=== PATIENT | female | born 1965 | race Caucasian/White ===

== ENCOUNTER → 2019-03-04 12:02 | Outpatient (CLI) | payer OTHER, SELFPAY ==
--- NOTE | 2019-03-04 12:39 | DI.CT.S_ITS ---
PROCEDURE: CT ABDOMEN PELVIS W CON INDICATIONS: Periumbilical pain TECHNIQUE: After the administration of oral and intravenous contrast, 5 mm thick sections acquired from the diaphragms to the symphysis. 5 mm thick coronal and sagittal reformats were performed. For radiation dose reduction, the following was used: automated exposure control, adjustment of mA and/or kV according to patient size. COMPARISON: [facility], CT, ABDOMEN/PELVIS WITH CONTRAST, 04/22/2017, 15:09. FINDINGS: Image quality: Excellent. ABDOMEN: Lung bases: Lung bases are clear. Heart size is normal. Solid organs: Liver is normal in size and enhancement. Gallbladder contains 2 small gallstones, densely calcified. There is no evidence for associated acute cholecystitis or biliary obstruction. Biliary system is non-dilated. Pancreas enhances normally. Spleen is normal in size and enhancement. No adrenal nodules. Kidneys are normal in size and enhancement, without hydronephrosis. Peritoneum and bowel: Stomach, small bowel, and colon loops are normal in caliber and wall thickness. No free fluid or air. Nodes and vessels: No retroperitoneal or mesenteric adenopathy. Aorta and inferior vena cava are normal in caliber. Miscellaneous: No ventral hernias. PELVIS: Genitourinary: Bladder wall thickness is normal. Note is made of lobulation of the uterine myometrium, consistent with multiple small and moderate sized uterine fibroids. Miscellaneous: No inguinal hernias or adenopathy. At the left lower quadrant area of diverticulitis identified on CT scanning 04/22/17 now appears normal. A normal appendix is identified at the right lower quadrant. There is no inflammatory process identified through the pelvis. Bones: No suspicious bony lesions. No vertebral body compression fractures. IMPRESSION: 1. Normal appendix found. 2. No evidence of diverticulitis. Mild diverticulosis at the sigmoid colon again noted. 3. Through the abdomen and pelvis no underlying infection or malignant neoplasm is suspected. Incidental note is made of at least 2 calcified small gallstones within the gallbladder lumen without evidence of acute cholecystitis or biliary obstruction. 4. Incidental note made of mild lobulation and heterogeneity of the myometrium consistent with presence of multiple scattered small and medium sized fibroids. If clinically desired this area could be more accurately assessed with dedicated pelvic ultrasound. No inflammatory process involving the adnexal structures appears present. Dictated by: Emil Webb M.D. on 03/04/2019 at 16:30 Approved by: Emil Webb M.D. on 03/04/2019 at 16:35
== END ==
PROVIDERS: PCP Family Medicine; Visit Provider Family Medicine
DX: R10.33 Periumbilical pain (principal); K57.30 Diverticulosis of large intestine without perforation or abscess without bleeding; K80.20 Calculus of gallbladder without cholecystitis without obstruction
CPT/HCPCS: 74177; Q9967

== ENCOUNTER 2019-07-04 14:10 | Emergency (ER) | payer OTHER, SELFPAY ==
[2019-07-04] VITALS (9 sets, daily range): BP systolic 100–121; BP diastolic 59–76; PULSE 61–84; RESP 12–22; TEMP 37.1; O2SAT 96–100; BMI 22.7
--- NOTE | 2019-07-04 14:32 | ED.ABDPAIN ---
HPI - Abdominal Pain <Levi MAKI Hooper - Last Filed: 07/04/19 22:13> General Chief Complaint: Abdominal Pain Stated Complaint: GALLBLADDER ISSUE Time Seen by Provider: 07/04/19 14:18 Source: patient and family Mode of arrival: Ambulatory Limitations: no limitations History of Present Illness HPI narrative: This is a 54-year-old female, nonsmoker, who has history of diverticulitis and hypothyroidism, presents to ED with significant other with chief complain of intermittent severe epigastric pain, right flank pain, and nausea. Patient reports onset of epigastric and back pain started last week Thursday (T-6) with multiple episodes of vomiting but subsided next day. Following 3 days she felt fatigue and weak and spends her days sleeping. Patient had recurring severe pain right above umbilicus radiating to upper chest and back with nausea. Patient states she feels hot/chills only when she has pain. Patient also worsening right flank pain since yesterday. Patient denies urinary frequency, urgency, dysuria. Patient reports pain feels as cramping and rates from 2/10 (now) to 10/10 (last night). Patient has decreased appetite and has been taking liquid diet with diluted non caffeinated tea and smoothies for diverticulitis diet. She was treated with Flagyl and Cipro when she had diverticulitis episode in January. Patient denies recent blood in her stools. Last bowel movement was 2 days ago. Patient states she occasionally drinks but has not been taken excessive alcohol drink with diverticulitis history and recent malaise. CT Abdomen/Pelvis (02/2019) indicates 2 small gallstones densely calcified without acute cholecystitis or biliary obstruction. Biliary system was nondilated. No evidence of diverticulitis but mild diverticulosis at the sigmoid colon was appreciated. There was incidental note of mild lobulation and heterogeneity of the myometrium which is consistent with fibroids without inflammatory process. Related Data Previous Rx's Medication Instructions Recorded levothyroxine [Synthroid] 25 mcg PO QAM #90 tab 01/30/16 medroxyprogesterone 2.5 mg PO QDAY #90 tab 01/30/16 estradiol [Climara] 1 patch TOPICAL QWEEK #12 patch 10/07/16 Allergies Allergy/AdvReac Type Severity Reaction Status Date / Time aspirin [ASPIRIN] Allergy Unknown childhood Verified 07/04/19 16:03 Review of Systems <MAKI Rivers - Last Filed: 07/04/19 22:13> Review of Systems Narrative: General: See HPI HEENT: Denies sinus pain, ear pain, sore throat, difficulty swallowing, dizziness. Respiratory: Denies dyspnea, cough, wheezing, hemoptysis, sputum. Cardiovascular: Denies chest pain, palpitations, orthopnea, edema. Gastrointestinal: See HPI : Denies dysuria, frequency, incontinence, hematuria, urinary retention. Musculoskeletal: Denies weakness, joint pain or bony pain, (+) right flank pain. Skin: Denies rash, skin lesions, or other. Neurologic: Denies weakness, headache, numbness, change in speech, confusion, seizures, incoordination. Psychiatric: No concerning psychosocial issues. 12-point review of systems is negative except for those stated above. Patient History <MAKI Rivers - Last Filed: 07/04/19 22:13> Medical History Fibroids (Acute) Surgical History History of third molar tooth extraction Family History Brother Age: 65 Hepatitis C Brother Age: 74 Gout Father Hypertension High cholesterol Stroke Grandfather Stroke Mother Age: 96 Pacemaker Diabetes mellitus Heart disease Hypertension High cholesterol Sister Age: 62 Graves disease Sister Age: 69 Colitis Fibromyalgia Social History Smoking Status: Never smoker Smoking Status: Never smoker alcohol intake frequency: a few times a week Alcohol type: wine Substance Use Type: does not use Exam <MAKI Rivers - Last Filed: 07/04/19 22:13> Narrative Exam Narrative: GEN: Alert, oriented x 3, well appearing and nourished, and in no acute distress. Head: Normal cephalic, atraumatic. No scalp or temporal tenderness, palpable mass or rash. EYES: Pupils are equal, round, and reactive to light and accommodation. Extraocular muscles are intact bilaterally. There is no subconjunctival hemorrhage, exudate and sclera non-icteric. ENT: Hearing grossly intact. Nose without bleeding, purulent discharge or deviation. Facial sinuses nontender to palpate. Mucous membrane moist, no mucosal lesion. Throat without erythema, tonsillar hypertrophy or exudate. Uvula in midline, airway patent. Neck: Trachea in midline. No JVD, non-tender without lymphadenopathy. No masses or thyroid megaly. Supple, non-tender and no meningeal signs. CARDIAC: Normal regular rate and rhythm without murmurs, gallops, or rubs. No chest wall tenderness. No peripheral edema, cyanosis or pallor. Capillary refill is less than 2 seconds. RESPIRATORY: Lungs are clear to auscultate bilaterally. No cough, wheezes, rales, or rhonchi. No stridor, respiratory distress, increase work of breathing, or accessary muscle used. ABD: Abdomen soft, nondistended and tender to palpate in all quadrant. No guarding, rebound tenderness to epigastric region. Bowel sounds are normal in all 4 quadrants. There is no palpable masses or organomegaly. EXT: Full painless ROM of all extremities with no loss of sensation, strength, effusion or edema. SKIN: Warm, dry, normal color for patient. No erythema, lesions or rash over visible areas. BACK: Nontender without deformity or crepitance. Right flank tenderness to palpate. NEUROLOGICAL: Alert and oriented to place, time and person. Sensation and motor function intact bilaterally. No facial droops, dysphasia. PSYCHIATRIC: Good judgement and reason, without hallucinations, abnormal affect or abnormal behaviors during the examination. Initial Vital Signs Initial Vital Signs: Vital Signs Temperature 98.7 F 07/04/19 14:20 Pulse Rate 84 07/04/19 14:20 Respiratory Rate 22 07/04/19 14:20 Blood Pressure 121/76 07/04/19 14:20 Pulse Oximetry 99 07/04/19 14:20 <Young Mcgraw DO - Last Filed: 07/05/19 07:02> Initial Vital Signs Initial Vital Signs: Vital Signs Temperature 98.7 F 07/04/19 14:20 Pulse Rate 84 07/04/19 14:20 Respiratory Rate 22 07/04/19 14:20 Blood Pressure 121/76 07/04/19 14:20 Pulse Oximetry 99 07/04/19 14:20 Scores <MAKI Rivers - Last Filed: 07/04/19 22:13> GCS [place] coma scale eye opening: Spontaneous [place] coma scale verbal response: Orientated [place] coma scale motor response: Obey commands [place] coma scale total score: 15 Course <Levi JadielMAKI juan - Last Filed: 07/04/19 22:13> Orders Ordered: Discontinued Medications Sodium Chloride (Normal Saline 0.9%) 1,000 mls @ 150 mls/hr IV CONT HARRY Last Infusion: 07/04/19 18:52 Dose: 0 mls/hr Documented by: Admin: 07/04/19 14:51 Dose: 150 mls/hr Documented by: TESS Ondansetron HCl (Zofran) 4 mg IV NOW ONE Stop: 07/04/19 18:56 Last Admin: 07/04/19 18:58 Dose: 4 mg Documented by: TESS Vital Signs Vital signs: Vital Signs - 8 hr 07/04/19 14:20 07/04/19 14:46 07/04/19 15:00 Temperature 98.7 F Pulse Rate 84 66 71 Respiratory Rate 22 12 16 Blood Pressure 121/76 Blood Pressure [Left Arm] 113/76 116/69 Pulse Oximetry 99 96 98 07/04/19 15:40 07/04/19 16:00 07/04/19 16:30 Temperature Pulse Rate 66 61 62 Respiratory Rate 17 16 Blood Pressure Blood Pressure [Left Arm] 105/69 100/65 109/59 L Pulse Oximetry 99 97 07/04/19 17:00 07/04/19 18:37 07/04/19 19:03 Temperature Pulse Rate 68 66 66 Respiratory Rate 16 12 14 Blood Pressure 106/72 Blood Pressure [Left Arm] 106/68 106/72 Pulse Oximetry 98 100 100 <Young Mcgraw DO - Last Filed: 07/05/19 07:02> Orders Ordered: Discontinued Medications Sodium Chloride (Normal Saline 0.9%) 1,000 mls @ 150 mls/hr IV CONT HARRY Last Infusion: 07/04/19 18:52 Dose: 0 mls/hr Documented by: Admin: 07/04/19 14:51 Dose: 150 mls/hr Documented by: TESS Ondansetron HCl (Zofran) 4 mg IV NOW ONE Stop: 07/04/19 18:56 Last Admin: 07/04/19 18:58 Dose: 4 mg Documented by: TESS Vital Signs Vital signs: Vital Signs - 8 hr 07/04/19 14:20 07/04/19 14:46 07/04/19 15:00 Temperature 98.7 F Pulse Rate 84 66 71 Respiratory Rate 22 12 16 Blood Pressure 121/76 Blood Pressure [Left Arm] 113/76 116/69 Pulse Oximetry 99 96 98 07/04/19 15:40 07/04/19 16:00 07/04/19 16:30 Temperature Pulse Rate 66 61 62 Respiratory Rate 17 16 Blood Pressure Blood Pressure [Left Arm] 105/69 100/65 109/59 L Pulse Oximetry 99 97 07/04/19 17:00 07/04/19 18:37 07/04/19 19:03 Temperature Pulse Rate 68 66 66 Respiratory Rate 16 12 14 Blood Pressure 106/72 Blood Pressure [Left Arm] 106/68 106/72 Pulse Oximetry 98 100 100 MDM - Abdominal Pain <MAKI Rivers - Last Filed: 07/04/19 22:13> Differential Diagnosis Differential diagnosis: Likely diverticulitis, pancreatitis and other (Cholecystitis, kidney infection, kidney stone, cholelithiasis) Medical Records Attestation: I reviewed the patient's medical records. Lab Data Attestation: I reviewed the patient's lab results. Result diagrams: 07/04/19 14:37 07/04/19 14:37 Labs: Lab Results 07/04/19 07/04/19 07/04/19 Range/Units 14:37 14:37 14:37 WBC 6.3 (4.5-11.0) X10^3/uL RBC 4.72 (4.0-5.2) X10^6/uL Hgb 15.1 (12.0-16.0) g/dL Hct 43.2 (36-46) % MCV 91.5 (80-100) fL MCH 32.1 (26-34) PG MCHC 35.0 (30-36) % RDW 12.9 (11.6-14.8) % Plt Count 206 (150-400) X10^3/uL Neut % (Auto) 72.5 (50-75) % Lymph % (Auto) 20.8 L (25-40) % Harvey % (Auto) 5.5 (3-14) % Eos % (Auto) 0.8 L (2-4) % Baso % (Auto) 0.4 (0-2) % Neut # (Auto) 4600 (3155-7386) /uL Lymph # (Auto) 1300 (8349-8330) /uL Harvey # (Auto) 300 (0-900) /uL Eos # (Auto) 100 (0-450) /uL Baso # (Auto) 0 (0-100) /uL PT 12.4 (10.1-12.7) SECONDS INR 1.1 (0.9-1.3) APTT 28 (26.4-36.2) SECONDS Sodium 139 (137-145) mmol/L Potassium 4.1 (3.4-5.1) mmol/L Chloride 103 (98-107) mmol/L Carbon Dioxide 27 (22-32) mmol/L BUN 8 (7-17) mg/dL Creatinine 0.72 (0.52-1.04) mg/dL Estimated GFR > 60.0 (>60) mL/min BUN/Creatinine Ratio 11.1 (6-22) Glucose 96 (70-100) mg/dL Lactate (0.7-2.1) mmol/L Calcium 9.8 (8.4-10.2) mg/dL Total Bilirubin 1.3 (0.2-1.3) mg/dL AST 699 H (14-36) IU/L ALT 581 H (<35) IU/L Alkaline Phosphatase 146 H (38-126) U/L Total Creatine Kinase 28 L (30-135) U/L CK-MB (CK-2) TNP CK-MB (CK-2) Rel Index TNP Troponin I < 0.012 (0.01-0.034) ng/mL Total Protein 8.0 (6.3-8.2) g/dL Albumin 4.6 (3.5-5.0) g/dL Globulin 3.4 (1.7-4.1) g/dL Albumin/Globulin Ratio 1.4 (1.0-2.8) Lipase 301 H (23-300) U/L Procalcitonin (<0.5) ng/mL 07/04/19 07/04/19 Range/Units 14:37 14:37 WBC (4.5-11.0) X10^3/uL RBC (4.0-5.2) X10^6/uL Hgb (12.0-16.0) g/dL Hct (36-46) % MCV (80-100) fL MCH (26-34) PG MCHC (30-36) % RDW (11.6-14.8) % Plt Count (150-400) X10^3/uL Neut % (Auto) (50-75) % Lymph % (Auto) (25-40) % Harvey % (Auto) (3-14) % Eos % (Auto) (2-4) % Baso % (Auto) (0-2) % Neut # (Auto) (7395-0347) /uL Lymph # (Auto) (7683-2368) /uL Harvey # (Auto) (0-900) /uL Eos # (Auto) (0-450) /uL Baso # (Auto) (0-100) /uL PT (10.1-12.7) SECONDS INR (0.9-1.3) APTT (26.4-36.2) SECONDS Sodium (137-145) mmol/L Potassium (3.4-5.1) mmol/L Chloride (98-107) mmol/L Carbon Dioxide (22-32) mmol/L BUN (7-17) mg/dL Creatinine (0.52-1.04) mg/dL Estimated GFR (>60) mL/min BUN/Creatinine Ratio (6-22) Glucose (70-100) mg/dL Lactate 0.8 (0.7-2.1) mmol/L Calcium (8.4-10.2) mg/dL Total Bilirubin (0.2-1.3) mg/dL AST (14-36) IU/L ALT (<35) IU/L Alkaline Phosphatase (38-126) U/L Total Creatine Kinase (30-135) U/L CK-MB (CK-2) CK-MB (CK-2) Rel Index Troponin I (0.01-0.034) ng/mL Total Protein (6.3-8.2) g/dL Albumin (3.5-5.0) g/dL Globulin (1.7-4.1) g/dL Albumin/Globulin Ratio (1.0-2.8) Lipase (23-300) U/L Procalcitonin < 0.05 (<0.5) ng/mL Imaging Data US - abdomen: Radiologist's Impression: [address] [address] Ultrasound Report Signed Patient: Nava Bhatti [facility]#: [id number] : 1965Acct:[id number] Age/Sex: 54 / FDate of Service: 07/04/19 Loc: ED Accession Number: [id number] Procedure: US abdomen limited Ordering Provider: Levi Hooper PROCEDURE: US ABDOMEN LIMITED INDICATIONS: ABDOMINAL PAIN,NAUSEA,ELEVATED LIVER ENZYMES TECHNIQUE: Real-time focused scanning was performed of the abdomen, with image documentation. COMPARISON: None. FINDINGS: The liver measures up to 14.2 cm in length, normal, with normal echotexture. The gallbladder contains a mobile 12 mm stone, and the gallbladder wall is normal in thickness at 2 mm. There is, however, relative dilatation of the common bile duct and common hepatic duct, measuring 10 mm and 9 mm respectively. IMPRESSION: Gallstone within the gallbladder lumen. Pancreas visualized appears normal. Abnormal biliary dilatation at the common hepatic duct and the common bile duct measuring up to 10 mm. There is a clinical concern for common duct calculus followup MR cholangiogram may be warranted. Pancreas visualized appears normal. Dictated by: Emil Webb M.D. on 07/04/2019 at 16:18 Approved by: Emil Webb M.D. on 07/04/2019 at 16:19 ECG Data Attestation: I personally reviewed and interpreted this ECG as follows: Prior ECG tracings: not available for review Interpretation: Sinus rhythm rate at 67. Normal [place]. OK interval 164, QRS duration 78, QT/QTC 422/445. No ST elevation or depression. MDM Narrative Medical decision making narrative: This is a 54-year-old female presents to ED with generalized abdominal pain worse in epigastric region with nausea and vomiting. There is no leukocytosis. White count was 6.3 without elevation in neutrophil. Test with elevated liver function test. AST of 699, ALT 581, Alk Phos 146, Lipase 301 (23-300), Total bili 1.3. Normal coag test. Cardiac enzymes were negative. Abdominal ultrasound test indicates mobile 12 mm stone in gallbladder with normal gallbladder wall thickening. There is relative dilation of common bile duct and common hepatic duct measuring [address] Perry (General Surgeon) and was recommended GI specialist evaluation for possible ERCP procedure and MRCP imaging test which is not capable for us to provide today. (1710) Dr. Robert (GI specialist) at [facility] was consulted and he kindly accepted patient's care for in anticipation of ERCP procedure. (1715) Dr. Enriquez (Hospitalist) at [place] kindly accepted patient's care for continuation of care. All required documents completed and pending transfer to [facility] discussed with patient and she verbalized understanding and agreement with treatment plan. Patient declined pain or anti nausea medications at this time since the severity is not bed. Patient currently waiting for transfer team to arrive with ETA at 7:00 p.m.. <Young Mcgraw DO - Last Filed: 07/05/19 07:02> Lab Data Labs: Lab Results 07/04/19 07/04/19 07/04/19 Range/Units 14:37 14:37 14:37 WBC 6.3 (4.5-11.0) X10^3/uL RBC 4.72 (4.0-5.2) X10^6/uL Hgb 15.1 (12.0-16.0) g/dL Hct 43.2 (36-46) % MCV 91.5 (80-100) fL MCH 32.1 (26-34) PG MCHC 35.0 (30-36) % RDW 12.9 (11.6-14.8) % Plt Count 206 (150-400) X10^3/uL Neut % (Auto) 72.5 (50-75) % Lymph % (Auto) 20.8 L (25-40) % Harvey % (Auto) 5.5 (3-14) % Eos % (Auto) 0.8 L (2-4) % Baso % (Auto) 0.4 (0-2) % Neut # (Auto) 4600 (4491-0770) /uL Lymph # (Auto) 1300 (6473-0839) /uL Harvey # (Auto) 300 (0-900) /uL Eos # (Auto) 100 (0-450) /uL Baso # (Auto) 0 (0-100) /uL PT 12.4 (10.1-12.7) SECONDS INR 1.1 (0.9-1.3) APTT 28 (26.4-36.2) SECONDS Sodium 139 (137-145) mmol/L Potassium 4.1 (3.4-5.1) mmol/L Chloride 103 (98-107) mmol/L Carbon Dioxide 27 (22-32) mmol/L BUN 8 (7-17) mg/dL Creatinine 0.72 (0.52-1.04) mg/dL Estimated GFR > 60.0 (>60) mL/min BUN/Creatinine Ratio 11.1 (6-22) Glucose 96 (70-100) mg/dL Lactate (0.7-2.1) mmol/L Calcium 9.8 (8.4-10.2) mg/dL Total Bilirubin 1.3 (0.2-1.3) mg/dL AST 699 H (14-36) IU/L ALT 581 H (<35) IU/L Alkaline Phosphatase 146 H (38-126) U/L Total Creatine Kinase 28 L (30-135) U/L CK-MB (CK-2) TNP CK-MB (CK-2) Rel Index TNP Troponin I < 0.012 (0.01-0.034) ng/mL Total Protein 8.0 (6.3-8.2) g/dL Albumin 4.6 (3.5-5.0) g/dL Globulin 3.4 (1.7-4.1) g/dL Albumin/Globulin Ratio 1.4 (1.0-2.8) Lipase 301 H (23-300) U/L Procalcitonin (<0.5) ng/mL 07/04/19 07/04/19 Range/Units 14:37 14:37 WBC (4.5-11.0) X10^3/uL RBC (4.0-5.2) X10^6/uL Hgb (12.0-16.0) g/dL Hct (36-46) % MCV (80-100) fL MCH (26-34) PG MCHC (30-36) % RDW (11.6-14.8) % Plt Count (150-400) X10^3/uL Neut % (Auto) (50-75) % Lymph % (Auto) (25-40) % Harvey % (Auto) (3-14) % Eos % (Auto) (2-4) % Baso % (Auto) (0-2) % Neut # (Auto) (7600-3580) /uL Lymph # (Auto) (0138-7246) /uL Harvey # (Auto) (0-900) /uL Eos # (Auto) (0-450) /uL Baso # (Auto) (0-100) /uL PT (10.1-12.7) SECONDS INR (0.9-1.3) APTT (26.4-36.2) SECONDS Sodium (137-145) mmol/L Potassium (3.4-5.1) mmol/L Chloride (98-107) mmol/L Carbon Dioxide (22-32) mmol/L BUN (7-17) mg/dL Creatinine (0.52-1.04) mg/dL Estimated GFR (>60) mL/min BUN/Creatinine Ratio (6-22) Glucose (70-100) mg/dL Lactate 0.8 (0.7-2.1) mmol/L Calcium (8.4-10.2) mg/dL Total Bilirubin (0.2-1.3) mg/dL AST (14-36) IU/L ALT (<35) IU/L Alkaline Phosphatase (38-126) U/L Total Creatine Kinase (30-135) U/L CK-MB (CK-2) CK-MB (CK-2) Rel Index Troponin I (0.01-0.034) ng/mL Total Protein (6.3-8.2) g/dL Albumin (3.5-5.0) g/dL Globulin (1.7-4.1) g/dL Albumin/Globulin Ratio (1.0-2.8) Lipase (23-300) U/L Procalcitonin < 0.05 (<0.5) ng/mL Discharge Plan Departure Patient Disposition: [facility] Clinical Impression: Gallstones with obstruction of gallbladder Qualifiers: Cholecystitis presence: without cholecystitis Qualified Code(s): K80.21 - Calculus of gallbladder without cholecystitis with obstruction Discharge Date/Time: 07/04/19 19:05 Prescriptions: No Action medroxyprogesterone 2.5 MG tablet 2.5 mg PO QDAY Qty: 90 RF: 3 levothyroxine [Synthroid] 25 MCG tablet 25 mcg PO QAM Qty: 90 RF: 3 estradiol [Climara] 0.025 MG/24 HR patch weekly 1 patch Topical QWEEK Qty: 12 RF: 3 Referrals: Lynsey Arrieta MD [Primary Care Provider] - <Young Mcgraw DO - Last Filed: 07/05/19 07:02> Cosign ED Attending Cosignature Attestation: Dr Mcgraw Co-Sign Statement: I was available for consultation during this patient's emergency department visit. This chart is signed by myself for administrative purposes only. I did not have direct contact with this patient during this visit. They were seen independently by the APC.
[2019-07-04 14:42] LABS: Add Manual Diff / Slide Review NO; Basophils Absolute Auto 0 /uL (0-100); Basophils Percent Auto 0.4 % (0-2); Eosinophils Absolute Auto 100 /uL (0-450); Eosinophils Percent Auto 0.8 % (2-4); Hematocrit 43.2 % (36-46); Hemoglobin 15.1 g/dL (12.0-16.0); Lymphocytes Absolute Auto 1300 /uL (1100-4500); Lymphocytes Percent Auto 20.8 % (25-40); Mean Corpuscular Hemoglobin 32.1 PG (26-34); Mean Corpuscular Volume 91.5 fL (80-100); Monocytes Absolute Auto 300 /uL (0-900); Monocytes Percent Auto 5.5 % (3-14); Neutrophils Absolute Auto 4600 /uL (1500-7000); Neutrophils Percent Auto 72.5 % (50-75); Platelet Count 206 X10^3/uL (150-400); Red Blood Cell Count 4.72 X10^6/uL (4.0-5.2); Red Cell Distribution Width 12.9 % (11.6-14.8); White Blood Cell Count 6.3 X10^3/uL (4.5-11.0)
[2019-07-04 14:49] LABS: INR 1.1 (0.9-1.3); Prothrombin Time 12.4 SECONDS (10.1-12.7)
[2019-07-04 14:51] LABS: PTT Partial Thromboplastin Tim 28 SECONDS (26.4-36.2)
[2019-07-04] MEDS: SODIUM CHLORIDE 0.9% 1,000 ML 150 ML IV (14:51)
[2019-07-04 14:54] LABS: Alanine Aminotransferase 581 IU/L (<35); Albumin 4.6 g/dL (3.5-5.0); Albumin Globulin Ratio 1.4 (1.0-2.8); Alkaline Phosphatase 146 U/L (38-126); Aspartate Aminotransferase 699 IU/L (14-36); BUN Creatinine Ratio 11.1 (6-22); Bilirubin Total 1.3 mg/dL (0.2-1.3); Blood Urea Nitrogen 8 mg/dL (7-17); Calcium 9.8 mg/dL (8.4-10.2); Carbon Dioxide 27 mmol/L (22-32); Chloride 103 mmol/L (98-107); Creatine Kinase 28 U/L (30-135); Estimated Glomerular Filt Rate > 60.0 mL/min (>60); Globulin 3.4 g/dL (1.7-4.1); Glucose 96 mg/dL (70-100); HEMOLYSIS < 15 (0-50); Lipase 301 U/L (23-300); Potassium 4.1 mmol/L (3.4-5.1); Sodium 139 mmol/L (137-145)
[2019-07-04 14:55] LABS: Lactate (Lactic Acid) 0.8 mmol/L (0.7-2.1)
--- NOTE | 2019-07-04 14:59 | DI.US.S_ITS ---
PROCEDURE: US ABDOMEN LIMITED INDICATIONS: ABDOMINAL PAIN,NAUSEA,ELEVATED LIVER ENZYMES TECHNIQUE: Real-time focused scanning was performed of the abdomen, with image documentation. COMPARISON: None. FINDINGS: The liver measures up to 14.2 cm in length, normal, with normal echotexture. The gallbladder contains a mobile 12 mm stone, and the gallbladder wall is normal in thickness at 2 mm. There is, however, relative dilatation of the common bile duct and common hepatic duct, measuring 10 mm and 9 mm respectively. IMPRESSION: Gallstone within the gallbladder lumen. Pancreas visualized appears normal. Abnormal biliary dilatation at the common hepatic duct and the common bile duct measuring up to 10 mm. There is a clinical concern for common duct calculus followup MR cholangiogram may be warranted. Pancreas visualized appears normal. Dictated by: Emil Webb M.D. on 07/04/2019 at 16:18 Approved by: Emil Webb M.D. on 07/04/2019 at 16:19
[2019-07-04 15:05] LABS: Troponin I < 0.012 ng/mL (0.01-0.034)
[2019-07-04 15:16] LABS: Procalcitonin < 0.05 ng/mL (<0.5)
--- NOTE | 2019-07-04 18:19 | PC.NURSE ---
Called number to [facility] x2 no answer.
--- NOTE | 2019-07-04 18:53 | PC.NURSE ---
IV fluids continued with [facility]. Please see their documentation.
[2019-07-04] MEDS: ONDANSETRON 4 MG/2 ML INJ IV (18:58)
== END 2019-07-04 19:05 | disposition short-term general hospital (02) ==
PROVIDERS: Emergency Provider Nurse Practitioner Family; PCP Family Medicine
DX: K80.21 Calculus of gallbladder without cholecystitis with obstruction (principal); R11.2 Nausea with vomiting, unspecified
CPT/HCPCS: 36415; 76705; 80053; 82550; 83605; 83690; 84145; 84484; 85025; 85610; 85730; 93005; 96361; 96374; 99284; J2405

== ENCOUNTER → 2020-11-15 14:14 | Outpatient (CLI) | payer OTHER, SELFPAY | PROVIDERS: PCP Family Medicine; Referring Provider Family Medicine; Visit Provider Family Medicine | DX: G62.9 Polyneuropathy, unspecified (principal) | CPT/HCPCS: 95886; 95911 ==

== ENCOUNTER → 2021-09-04 11:27 | Outpatient (CLI) | payer OTHER, SELFPAY ==
--- NOTE | 2021-09-04 | DI.MG.S_ITS ---
BILATERAL DIGITAL SCREENING MAMMOGRAM 3D/2D WITH CAD: 09/04/2021 CLINICAL: Routine screening. Comparison is made to exam dated: 04/03/2016 mammogram - [facility]. There are scattered fibroglandular elements in both breasts. Current study was also evaluated with a Computer Aided Detection (CAD) system. No significant masses, calcifications, or other findings are seen in either breast. There has been no significant interval change. IMPRESSION: NEGATIVE There is no mammographic evidence of malignancy. A 1 year screening mammogram is recommended. Based on the Tyrer Cuzick model (a risk assessment model) the patient's lifetime risk is 9.8% and her 10 year risk is 3.4%. According to the ACR, ACS, and NCCN guidelines, an annual breast MRI exam along with mammogram is recommended if the patient's lifetime risk is 20% or greater. This exam was interpreted at Station ID: [id number]. NOTE: For mammograms, a report in lay terms will be sent to the patient. Approximately 15% of breast malignancies will not be visualized mammographically. In the management of a palpable breast mass, a negative mammogram must not discourage biopsy of a clinically suspicious lesion. Electronically Signed By: Michael duran/roxy:09/04/2021 17:34:07 letter sent: Normal Exam ACR BI-RADS Category 1: Negative [id number]
--- NOTE | 2021-09-04 | DI.US.S_ITS ---
PROCEDURE: US PELVIC COMPLETE INDICATIONS: LELOMYOMA OF UTERUS TECHNIQUE: Real-time scanning was performed of the pelvic organs, with image documentation. Additional endovaginal scanning was necessary due to incomplete visualization of the adnexal and endometrial structures by transabdominal scanning. COMPARISON: [facility], US, PELVIC COMPLETE, 04/03/2016, 10:52. FINDINGS: Uterus: Uterus is retroverted and normal in size at 6.6 x 2.6 x 4.4 cm. The myometrium is heterogeneous with multiple fibroids. The endometrium measures 1.6 mm combined thickness. Anterior right submucosal fibroid measuring 8 mm is unchanged. Right subserosal and intramural fibroid measuring 24 mm is unchanged. Right posterior intramural fibroid measuring 11 mm is present which is not significantly changed. Left posterior intramural fibroid measuring roughly 6 mm is decreased in size. Ovaries: The right ovary measures 2.1 x 1.1 x 0.7 cm. The left ovary measures 2.1 x 0.6 x 1.3 cm . No of air in masses are seen. Other: No pathologic free abdominal or pelvic fluid. IMPRESSION: 1. Uterine fibroids as above. We strive to produce accurate, complete, and clear reports of imaging services. To assist us in improving patient care, this report was composed using standard report templates and voice recognition software. Therefore, it may contain abnormal punctuation, insertions and/or omissions. Occasional wrong-word or sound-alike substitutions may occur. Though we review the report and make efforts to correct it, we do recommend that the report be read carefully in proper context to recognize any text inaccuracies. Dictated by: Ronak Pacheco M.D. on 09/04/2021 at 14:35 Transcribed by: KATIE on 09/04/2021 at 14:37 Approved by: Ronak Pacheco M.D. on 09/04/2021 at 17:00
== END ==
PROVIDERS: PCP Family Medicine; Referring Provider Family Medicine; Visit Provider Family Medicine
DX: D25.0 Submucous leiomyoma of uterus; D25.1 Intramural leiomyoma of uterus; D25.2 Subserosal leiomyoma of uterus; Z12.31 Encounter for screening mammogram for malignant neoplasm of breast
CPT/HCPCS: 76830; 76856; 77063; 77067

== ENCOUNTER → 2023-08-14 08:52 | Outpatient (CLI) | payer OTHER, SELFPAY ==
[2023-08-14 18:14] LABS: Alanine Aminotransferase 18 IU/L (<35); Albumin 4.7 g/dL (3.5-5.0); Albumin Globulin Ratio 1.5 (1.0-2.8); Alkaline Phosphatase 82 U/L (38-126); Aspartate Aminotransferase 28 IU/L (14-36); BUN Creatinine Ratio 12.7 (6-22); Bilirubin Total 0.6 mg/dL (0.2-1.3); Blood Urea Nitrogen 10 mg/dL (7-17); Carbon Dioxide 32 mmol/L (22-32); Chloride 103 mmol/L (98-107); Cholesterol 227 mg/dL (140-199); Estimated Glomerular Filt Rate > 60 mL/min (>60); Globulin 3.1 g/dL (1.7-4.1); Glucose 95 mg/dL (70-100); HDL Cholesterol 76 mg/dL (40-60); HEMOLYSIS < 15 (0-50); LDL Cholesterol Calculated 127 mg/dL (<100); Potassium 4.5 mmol/L (3.4-5.1); Sodium 141 mmol/L (137-145); Total Protein 7.8 g/dL (6.3-8.2); Triglycerides 120 mg/dL (35-150)
[2023-08-14 18:32] LABS: Free T3, Triiodothyronine Free 3.16 pg/mL (2.77-5.27)
[2023-08-14 18:46] LABS: Thyroid Stimulating Hormone 1.25 uIU/mL (0.47-4.68)
[2023-08-14 18:49] LABS: Ferritin 49 ng/mL (11-264)
[2023-08-15 05:14] LABS: HBsAg Screen Negative (Negative); Hepatitis A Antibody IgM Negative (Negative); Hepatitis B Core Antibody IgM Negative (Negative); Hepatitis C Antibody Non Reactive (Non Reactive)
== END ==
PROVIDERS: PCP Family Medicine; Visit Provider Family Medicine
DX: Z13.6 Encounter for screening for cardiovascular disorders (principal); Z13.1 Encounter for screening for diabetes mellitus; E03.9 Hypothyroidism, unspecified; M25.50 Pain in unspecified joint
CPT/HCPCS: 80053; 80061; 80074; 82728; 84443; 84481; 86803

== ENCOUNTER → 2023-08-21 08:58 | Outpatient (CLI) | payer OTHER, SELFPAY | PROVIDERS: PCP Family Medicine; Visit Provider Family Medicine | DX: R39.89 Other symptoms and signs involving the genitourinary system (principal); R10.9 Unspecified abdominal pain; M25.50 Pain in unspecified joint | CPT/HCPCS: 87086 ==

== ENCOUNTER → 2023-09-29 11:12 | Outpatient (CLI) | payer OTHER, SELFPAY ==
--- NOTE | 2023-09-29 11:13 | DI.MG.S_ITS ---
BILATERAL DIGITAL SCREENING MAMMOGRAM 3D/2D WITH CAD: 09/29/2023 CLINICAL: Routine screening. Comparison is made to exams dated: 09/04/2021 mammogram, 04/03/2016 mammogram - [facility], and 06/04/2010 mammogram - [facility]. There are scattered areas of fibroglandular density in both breasts (category b / 25%-50% glandular tissue). Current study was also evaluated with a Computer Aided Detection (CAD) system. There is an asymmetry in the left breast middle depth lateral region seen on the craniocaudal view only. No other significant masses, calcifications, or other findings are seen in either breast. IMPRESSION: INCOMPLETE: NEEDS ADDITIONAL IMAGING EVALUATION The asymmetry in the left breast is indeterminate. A diagnostic mammogram and ultrasound is recommended. Based on the Tyrer Cuzick model (a risk assessment model) the patient's lifetime risk is 9.5% and her 10 year risk is 3.7%. According to the ACR, ACS, and NCCN guidelines, an annual breast MRI exam along with mammogram is recommended if the patient's lifetime risk is 20% or greater. This exam was interpreted at Station ID: [id number]. NOTE: For mammograms, a report in lay terms will be sent to the patient. Approximately 15% of breast malignancies will not be visualized mammographically. In the management of a palpable breast mass, a negative mammogram must not discourage biopsy of a clinically suspicious lesion. Electronically Signed By: Luh Neal M.D., Ph.D. eb/:09/29/2023 16:05:13 letter sent: Additional Imaging Needed ACR BI-RADS Category 0: Incomplete [id number]
--- NOTE | 2023-09-29 11:13 | DI.CT.S_ITS ---
PROCEDURE: CT ABDOMEN PELVIS W CON INDICATIONS: recurrent abd pain, lower abd pain, possible diverticulitis TECHNIQUE: Oral contrast was given in this patient. After the administration of intravenous contrast, axial sections acquired from the lung bases to the pubic symphysis. Coronal and sagittal reformats were performed. For radiation dose reduction, the following was used: automated exposure control, adjustment of mA and/or kV according to patient size. COMPARISON: [facility], CT, ABDOMEN/PELVIS WITH CONTRAST, 04/22/2017, 15:09. [facility], CT, CT ABDOMEN PELVIS W CON, 03/04/2019, 12:47. FINDINGS: Image quality: Diagnostic. Lower Chest: No significant findings. ABDOMEN: Liver: No solid mass. Diffuse mild fatty liver infiltration is noted. Gallbladder: Removed. Biliary ducts: No biliary dilation. Pancreas: No ductal dilation. Spleen: Size is within normal limits. Adrenal Glands: No adrenal nodules. Kidneys and Ureters: No hydronephrosis. No solid mass. No complex renal cystic lesion which requires follow up. Stomach and Bowel: A few distal colonic diverticula formation can be seen, yet without findings of active diverticulitis. Normal colonic caliber, without significant wall thickening. No dilated loops of small bowel are seen. A normal appendix is noted. Peritoneum: No abnormal intraperitoneal fluid. No free air. Ventral Wall: No significant ventral hernia. Abdominal Nodes: No retroperitoneal or mesenteric adenopathy by size criteria. Vessels: Aorta and inferior vena cava are normal in size. Incidental note is made of a retroaortic left renal vein. PELVIS: Pelvic Organs: Uterine fibroids are seen. No adnexal masses are seen on either side. Bladder: No bladder wall thickening, accounting for underdistention. Pelvic Nodes: No enlarged lymph nodes. Miscellaneous: No inguinal hernias are seen. Bones: No aggressive osseous abnormality. IMPRESSION: There are a few distal colonic diverticula seen, yet without findings of active diverticulitis. Normal appendix. Additional findings: Cholecystectomy Mild fatty liver infiltration Retroaortic left renal vein Uterine fibroids Dictated by: Luca Jarrell M.D. on 09/30/2023 at 9:52 Approved by: Luca Jarrell M.D. on 09/30/2023 at 9:55
== END ==
PROVIDERS: PCP Family Medicine; Referring Provider Family Medicine; Visit Provider Family Medicine
DX: Z12.31 Encounter for screening mammogram for malignant neoplasm of breast (principal); R92.323 Mammographic fibroglandular density, bilateral breasts; K57.90 Diverticulosis of intestine, part unspecified, without perforation or abscess without bleeding; K76.0 Fatty (change of) liver, not elsewhere classified; D25.9 Leiomyoma of uterus, unspecified; R10.9 Unspecified abdominal pain; M25.50 Pain in unspecified joint; Z90.49 Acquired absence of other specified parts of digestive tract
CPT/HCPCS: 74177; 77063; 77067; Q9967

== ENCOUNTER → 2023-10-22 13:18 | Outpatient (CLI) | payer OTHER, SELFPAY ==
[2023-10-22 20:41] LABS: Add Manual Diff / Slide Review NO; Basophils Absolute Auto 0 /uL (0-100); Basophils Percent Auto 0.5 % (0-2); Eosinophils Absolute Auto 200 /uL (0-450); Eosinophils Percent Auto 2.9 % (2-4); Hemoglobin 13.5 g/dL (12.0-16.0); Lymphocytes Absolute Auto 1800 /uL (1100-4500); Mean Corpuscular HGB Conc 33.8 % (30-36); Mean Corpuscular Hemoglobin 31.5 PG (26-34); Mean Corpuscular Volume 93.1 fL (80-100); Monocytes Absolute Auto 300 /uL (0-900); Monocytes Percent Auto 5.3 % (3-14); Neutrophils Absolute Auto 4100 /uL (1500-7000); Neutrophils Percent Auto 63.3 % (50-75); Platelet Count 220 X10^3/uL (150-400); Red Blood Cell Count 4.29 X10^6/uL (4.0-5.2); Red Cell Distribution Width 13.4 % (11.6-14.8); White Blood Cell Count 6.5 X10^3/uL (4.5-11.0)
[2023-10-22 20:46] LABS: Uric Acid 4.6 mg/dL (2.5-6.2)
[2023-10-22 20:52] LABS: C-Reactive Protein Quant < 0.5 mg/dL (<1.0)
[2023-10-22 20:53] LABS: Rheumatoid Factor < 8.6 IU/mL (<12.0)
[2023-10-22 21:06] LABS: Erythrocyte Sedimentation Rate 9 MM/HR (0-20)
[2023-10-23 23:35] LABS: HBsAg Screen Negative (Negative); Hepatitis A Antibody IgM Negative (Negative); Hepatitis B Core Antibody IgM Negative (Negative); Hepatitis C Antibody Non Reactive (Non Reactive)
== END ==
PROVIDERS: PCP Family Medicine; Visit Provider Family Medicine
DX: E88.89 Other specified metabolic disorders (principal); K21.9 Gastro-esophageal reflux disease without esophagitis; E03.9 Hypothyroidism, unspecified; Z13.0 Encounter for screening for diseases of the blood and blood-forming organs and certain disorders involving the immune mechanism; M25.50 Pain in unspecified joint; G62.9 Polyneuropathy, unspecified
CPT/HCPCS: 80074; 84550; 85025; 85651; 86038; 86140; 86430

== ENCOUNTER → 2023-11-17 11:50 | Outpatient (CLI) | payer OTHER, SELFPAY ==
--- NOTE | 2023-11-17 11:51 | DI.MG.S_ITS ---
UNILATERAL LEFT DIGITAL DIAGNOSTIC MAMMOGRAM 3D/2D WITH ADDITIONAL VIEWS: 11/17/2023 CLINICAL: Additional evaluation requested from prior study. Comparison is made to exams dated: 09/29/2023 mammogram, 09/04/2021 mammogram, and 04/03/2016 mammogram - [facility]. There are scattered areas of fibroglandular density (category b / 25%-50% glandular tissue). There is an asymmetry in the left breast middle depth lateral region seen on the craniocaudal view only. This is not seen in additional views. No other significant masses or calcifications are seen in the breast. IMPRESSION: NEGATIVE There is no mammographic evidence of malignancy. Return to annual mammogram screening schedule is recommended. Based on the Tyrer Cuzick model (a risk assessment model) the patient's lifetime risk is 9.5% and her 10 year risk is 3.7%. According to the ACR, ACS, and NCCN guidelines, an annual breast MRI exam along with mammogram is recommended if the patient's lifetime risk is 20% or greater. This exam was interpreted at Station ID: [id number]. NOTE: For mammograms, a report in lay terms will be sent to the patient. Approximately 15% of breast malignancies will not be visualized mammographically. In the management of a palpable breast mass, a negative mammogram must not discourage biopsy of a clinically suspicious lesion. Electronically Signed By: Mikael Mohamud M.D. lc/:11/17/2023 13:46:05 letter sent: Normal Exam ACR BI-RADS Category 1: Negative
== END ==
PROVIDERS: PCP Family Medicine; Referring Provider Family Medicine; Visit Provider Family Medicine
DX: R92.8 Other abnormal and inconclusive findings on diagnostic imaging of breast (principal)
CPT/HCPCS: 77065; G0279

== ENCOUNTER → 2024-03-17 14:20 | Outpatient (CLI) | payer OTHER, SELFPAY ==
[2024-03-17 21:24] LABS: COVID-19 CEPHEID 4-PLEX PCR Negative (Negative); Influenza A - CEPHEID Flu A NEGATIVE (NEGATIVE); Influenza B - CEPHEID Flu B NEGATIVE (NEGATIVE); Respiratory Syncytial Virus Negative (Negative)
== END ==
PROVIDERS: PCP Family Medicine; Visit Provider Physician Assistant Medical
DX: J34.89 Other specified disorders of nose and nasal sinuses (principal); J31.0 Chronic rhinitis
CPT/HCPCS: 0241U; 87070; 87075; 87205

== ENCOUNTER → 2024-06-29 11:36 | Outpatient (CLI) | payer OTHER, SELFPAY ==
[2024-06-29 19:35] LABS: Thyroid Stimulating Hormone 1.62 uIU/mL (0.47-4.68)
== END ==
LOC: LAB 11:36
PROVIDERS: PCP Family Medicine; Visit Provider Family Medicine
DX: E03.9 Hypothyroidism, unspecified (principal); Z12.39 Encounter for other screening for malignant neoplasm of breast
CPT/HCPCS: 84443

== ENCOUNTER → 2024-12-26 09:36 | Outpatient (CLI) | payer OTHER, SELFPAY ==
[2024-12-26 18:43] LABS: Add Manual Diff / Slide Review NO; Hematocrit 41.9 % (36-46); Hemoglobin 14.3 g/dL (12.0-16.0); Lymphocytes Absolute Auto 1500 /uL (1100-4500); Mean Corpuscular HGB Conc 34.1 % (30-36); Mean Corpuscular Hemoglobin 31.1 PG (26-34); Mean Corpuscular Volume 91.1 fL (80-100); Platelet Count 211 X10^3/uL (150-400)
[2024-12-26 18:50] LABS: Alanine Aminotransferase 12 IU/L (<35); Albumin 4.3 g/dL (3.5-5.0); Albumin Globulin Ratio 1.5 (1.0-2.8); Alkaline Phosphatase 83 U/L (38-126); Blood Urea Nitrogen 17 mg/dL (7-17); Calcium 9.8 mg/dL (8.4-10.2); Carbon Dioxide 28 mmol/L (22-32); Chloride 103 mmol/L (98-107); Cholesterol 211 mg/dL (140-199); Estimated Glomerular Filt Rate > 60 mL/min (>60); Globulin 2.9 g/dL (1.7-4.1); Glucose 97 mg/dL (70-99); HDL Cholesterol 70 mg/dL (40-60); HEMOLYSIS < 15 (0-50); Potassium 4.7 mmol/L (3.4-5.1); Sodium 141 mmol/L (137-145); Total Protein 7.2 g/dL (6.3-8.2); Triglycerides 84 mg/dL (35-150)
[2024-12-26 19:17] LABS: Thyroid Stimulating Hormone 1.62 uIU/mL (0.47-4.68)
== END ==
PROVIDERS: PCP Family Medicine; Visit Provider Family Medicine
DX: Z13.1 Encounter for screening for diabetes mellitus (principal); E03.9 Hypothyroidism, unspecified; E88.89 Other specified metabolic disorders; Z83.3 Family history of diabetes mellitus; E78.2 Mixed hyperlipidemia
CPT/HCPCS: 80053; 80061; 84443; 85025

== ENCOUNTER → 2025-01-09 09:42 | Outpatient (CLI) | payer OTHER, SELFPAY | PROVIDERS: PCP Family Medicine; Visit Provider Physician Assistant | DX: J02.9 Acute pharyngitis, unspecified (principal) | CPT/HCPCS: 87070 ==